=== PATIENT | male | born 1945 | race Caucasian/White ===

== ENCOUNTER → 2018-09-29 | Outpatient (CLI) | payer MEDICARE, OTHER ==
--- NOTE | 2018-09-29 14:48 | Diagnostic Imaging Report ---
INDICATION: Dyspnea on exertion. Time of exam 2:26 PM No prior studies are available for comparison. Heart appears to be enlarged. There is eventration of right hemidiaphragm. Lungs are clear. No infiltrate or failure is detected. No effusion or pneumothorax is identified. IMPRESSION: No acute cardiopulmonary process is detected. Dictated by: Dictated on workstation # [id number]
== END ==
LOC: RAD 14:06
PROVIDERS: ATTEND Internal Medicine Cardiovascular Disease
DX: I25.10 Atherosclerotic heart disease of native coronary artery without angina pectoris (principal); I10 Essential (primary) hypertension; E78.2 Mixed hyperlipidemia; E11.9 Type 2 diabetes mellitus without complications; R00.2 Palpitations
CPT/HCPCS: 36415; 71046; 84443

== ENCOUNTER → 2018-10-14 | Outpatient (CLI) | payer MEDICARE, OTHER ==
[~2018-10-14] MED LIST: CATHETER FLUSH 10 ML SYR IV PRN
[2018-10-14 13:44] VITALS: BP 131/83
[2018-10-14 13:54] VITALS: BP 140/81
--- NOTE | 2018-10-14 16:23 | STRESS TEST ---
DATE OF SERVICE: 10/14/2018 EXERCISE MYOVIEW STRESS TEST REFERRING PHYSICIAN: Dr. Chandu Kelsey. Baseline heart rate is 72. Baseline blood pressure is 131/83. Baseline EKG is sinus rhythm with right bundle branch block. In summary, the patient was injected with 10.74 mCi of technetium-99 Myoview and the resting images were obtained. Then, the patient started exercising with a baseline heart rate, blood pressure and EKG mentioned above. The patient was able to exercise for 3 minutes 19 seconds on standard [facility] protocol. With peak exercise level, EKG was showing [address] depression in V4, V5 nondiagnostic finding. No acute ischemic changes. During recovery, heart rate and blood pressure returned to baseline. EKG returned to baseline. Peak blood pressure was 175/85. The resting and stress images were reviewed and compared in the short axis, horizontal long axis, and vertical long axis views. Review of the images showed good radiotracer uptake with no significant ischemia or infarction. SSS is 2, SDS 2, TID value 1.02. On the gated images, the left ventricle appeared to be normal size with normal contractility. Calculated ejection fraction 73%. CONCLUSION: 1. Fair exercise tolerance, a total of 3 minutes 19 seconds on standard Ryne protocol, total of 4.7 METS achieving 88% of maximum expected heart rate. 2. Appropriate heart rate and blood pressure response to exercise, returned to baseline during recovery. 3. Nondiagnostic EKG changes with exercise returned to baseline during recovery. 4. No ischemia or infarction on SPECT images. 5. Normal left ventricular size with normal contractility. Calculated ejection fraction 73%. Job ID: [id number] DocumentID: [id number] Dictated Date: 10/14/2018 15:54:01 Picking Table Worker Date: 10/14/2018 16:22:27 Dictated By: BHUMIKA HAMILTON MD
== END ==
LOC: EDUNIT# 09-29 13:42 → CARD 11:41
PROVIDERS: ATTEND Internal Medicine Cardiovascular Disease
DX: I25.10 Atherosclerotic heart disease of native coronary artery without angina pectoris (principal); E11.9 Type 2 diabetes mellitus without complications; I10 Essential (primary) hypertension; E78.2 Mixed hyperlipidemia
CPT/HCPCS: 78452; 93017

== ENCOUNTER 2018-10-27 19:36 | Outpatient (CLI) | payer MEDICARE, OTHER | END 2018-10-28 07:16 | disposition home or self-care (01) | LOC: SLEEP 19:36 | PROVIDERS: ATTEND Internal Medicine Cardiovascular Disease | DX: G47.33 Obstructive sleep apnea (adult) (pediatric) (principal); I49.9 Cardiac arrhythmia, unspecified; I10 Essential (primary) hypertension; E78.2 Mixed hyperlipidemia; E11.9 Type 2 diabetes mellitus without complications; I25.10 Atherosclerotic heart disease of native coronary artery without angina pectoris; Z96.653 Presence of artificial knee joint, bilateral; Z85.828 Personal history of other malignant neoplasm of skin | CPT/HCPCS: 95811 ==

== ENCOUNTER → 2018-11-23 | Outpatient (CLI) | payer MEDICARE, OTHER | LOC: CARD 13:14 | PROVIDERS: ATTEND Internal Medicine Cardiovascular Disease | DX: I25.10 Atherosclerotic heart disease of native coronary artery without angina pectoris (principal); E78.2 Mixed hyperlipidemia; I10 Essential (primary) hypertension | CPT/HCPCS: 93306 ==

== ENCOUNTER → 2021-12-06 | Outpatient (CLI) | payer MEDICARE, OTHER | LOC: CARDFS 11:55 | PROVIDERS: ATTEND Physician Assistant | DX: I10 Essential (primary) hypertension (principal) | CPT/HCPCS: 93306 ==

== ENCOUNTER → 2022-08-12 | Outpatient (CLI) | payer MEDICARE, OTHER ==
[~2022-08-12] VITALS: Ht 182 cm; Wt 94.0 kg
[~2022-08-12] MED LIST changes: -CATHETER FLUSH 10 ML SYR IV PRN; +CATHETER FLUSH 10 ML SYR IVP PRN; +REGADENOSON 0.4 MG/5 ML SYR (LEXISCAN) IV ONE
[2022-08-12 12:51] VITALS: BP 111/78
--- NOTE | 2022-08-13 08:34 | Cardiology Stress Test Report ---
Stress Test Report Date of Procedure/Referring: Date of Procedure: Aug 12, 2022 PCP Chandu Kelsey MD Admitting Physician Admitting Physician: Attending Physician: Milka Smallwood Indications: HTN Baseline Heart Rate: 86 Baseline Blood Pressure: Blood Pressure Systolic: 111 Blood Pressure Diastolic: 78 Baseline Vitals Vital Signs Date Time Temp Pulse Resp B/P (MAP) Pulse Ox O2 Delivery O2 Flow Rate FiO2 08/12/22 12:51 91 111/78 (89) Baseline EKG: Baseline EKG: RBBB Summary After explaining the procedure to the patient, he signed a consent and then brought to the stress nuclear laboratory. Patient received 0.4 mg Lexiscan for stress test, ECG, heart rate and blood pressure were monitored continuously. Resting and stress dose of radio tracer were injected, imaging was acquired and reviewed in short axis, horizontal long axis and vertical long axis views. TID: 1.07 SSS: 2 SDS: 0 EF: 86 Patient was unable to exercise, test was converted to Lexiscan Myoview stress test Patient tolerated Lexiscan well Baseline right bundle branch block persisted during test No significant ischemia or infarction noted on SPECT images Normal left ventricular size, ejection fraction 86% Copy Copies To 1: CHANDU KELSEY MD, BASHAR J MD Aug 13, 2022 08:34
== END ==
LOC: CARD 10:46
PROVIDERS: ATTEND Physician Assistant
DX: I10 Essential (primary) hypertension (principal)
CPT/HCPCS: 78452; 93017; A9502